=== PATIENT | female | born 1965 | race Caucasian/White ===

== ENCOUNTER 2021-02-19 11:22 | Outpatient (REF) | payer OTHER, SELFPAY ==
--- NOTE | ~2021-02-19 | MM_ITS ---
EXAMINATION: MM SCREENING DIGITAL BREAST TOMOSYNTHESIS, BILATERAL CLINICAL INFORMATION: Screening. Asymptomatic. Benign right stereotactic biopsy 12/14/2017. The lifetime risk of breast cancer based on the Tyrer-Cuzick Model is 8%. COMPARISON: Mammography: 02/14/2020, 07/05/2019, 01/04/2019, 06/24/2018, 12/14/2017, 12/02/2017, 10/25/2015. TECHNIQUE: Digital breast tomosynthesis is performed in both the craniocaudal and mediolateral oblique views along with computer-aided detection (CAD). Synthesized 2D images are generated from the tomosynthesis. FINDINGS: There are scattered areas of fibroglandular density (ACR BI-RADS breast composition Category b). Parenchymal pattern is similar to prior studies. No developing density. There is a intramammary node again seen posterior 3:00 right breast. Small dermal lesion again noted overlying the inferior right breast. There is biopsy clip marker upper outer quadrant right breast with stable remaining calcifications. The axilla and skin contours are unremarkable. No significant changes. MM/MM tomosynthesis screening BI IMPRESSION: No mammographic evidence of malignancy. ASSESSMENT: BI-RADS 2: Benign RECOMMENDATION: Routine annual mammography screening. This patient's information was entered into a reminder system with a target due date for their next mammogram.
== END 2021-02-19 11:23 | disposition home or self-care (01) ==
LOC: HO.MAMMO 11:22
PROVIDERS: Visit Provider Internal Medicine
DX: Z12.31 Encounter for screening mammogram for malignant neoplasm of breast (principal)
CPT/HCPCS: 77063; 77067

== ENCOUNTER 2021-05-22 11:34 | Outpatient (REF) | payer OTHER, SELFPAY ==
[2021-05-22 14:02] LABS: MANUAL DIFF FLAG NO
[2021-05-22 14:07] LABS: Basophils Percent Auto 0.4 % (0-2); Eosinophils Absolute Auto 0.1 X10*3/uL (0.0-0.4); Eosinophils Percent Auto 3.1 % (0-4); Hematocrit 43.7 % (37-47); Hemoglobin 13.9 g/dl (12.0-16.0); Imm Gran Abs Auto 0.01 X10*3/uL (0.00-0.03); Imm Gran Pct Auto 0.2 % (0.0-0.4); Lymphocytes Absolute Auto 1.9 X10*3/uL (1.2-4.9); Lymphocytes Percent Auto 41.6 % (20-40); Mean Corpuscular HGB Conc 31.8 g/dl (31.0-35.0); Mean Corpuscular Hemoglobin 26.7 pg (27.0-33.0); Mean Corpuscular Volume 83.9 fL (80-98); Mean Platelet Volume 8.6 fL (9.4-12.3); Monocytes Absolute Auto 0.4 X10*3/uL (0.1-1.2); Monocytes Percent Auto 8.9 % (2-11); Neutrophils Absolute Auto 2.1 X10*3/uL (2.0-8.3); Neutrophils Percent Auto 45.8 % (45-73); Platelet Count 280 X10*3/uL (160-400); Red Blood Count 5.21 X10*6/uL (4.20-5.50); Red Cell Distribution Width 15.7 % (11.0-16.0); White Blood Count 4.6 X10*3/uL (4.8-10.8)
[2021-05-22 14:34] LABS: Alanine Aminotransferase 36 U/L (0-31); Albumin Level 4.1 g/dL (3.5-5.0); Alkaline Phosphatase 101 U/L (39-117); Anion Gap 12 (12-20); Aspartate Amino Transferase 24 U/L (5-31); Bilirubin Total 0.5 mg/dL (0.0-1.0); Blood Urea Nitrogen 11 mg/dL (9-16); Calcium 8.8 mg/dL (8.4-10.2); Carbon Dioxide 25 mmol/L (22-29); Chloride 105 mmol/L (96-108); Cholesterol 218 mg/dL; Estimated Glomerular Filt Rate > 60; Glucose Fasting 94 mg/dL (60-99); HDL Cholesterol 68 mg/dL; LDL Cholesterol Calculated 136 mg/dl; Potassium 3.9 mmol/L (3.3-5.1); Sodium 138 mmol/L (135-145); Total Protein 6.8 g/dL (6.5-8.0); Triglycerides 73 mg/dL
== END 2021-05-22 11:35 | disposition home or self-care (01) ==
LOC: HO.HMGCLDS 11:34
PROVIDERS: PCP Internal Medicine; Visit Provider Internal Medicine
DX: Z00.00 Encounter for general adult medical examination without abnormal findings (principal); G44.209 Tension-type headache, unspecified, not intractable; M25.511 Pain in right shoulder; Z86.010 Personal history of colon polyps
CPT/HCPCS: 36415; 80053; 80061; 85025

== ENCOUNTER 2021-06-25 10:19 | Day surgery (SDC) | payer OTHER, SELFPAY ==
[2021-06-17 10:03] VITALS: BMI 31.0
--- NOTE | 2021-06-24 10:06 | HO.ANESPROP2 ---
Documented by User: Loren Blankenship NP 06/24/21 10:10 HPI - Anesthesia Eval Consult details Narrative: 56yo F for Colonoscopy [facility] Past Medical History Medical History (Updated 06/17/21 @ 10:02 by Ivelisse Colindres RN) Exercise-induced asthma Surgical History Surgical History (Updated 06/17/21 @ 09:55 by Ivelisse Colindres RN) Hx of colonoscopy Social History Social History Patient Tobacco Use Status: Former Tobacco user Tobacco use type: Cigarette Advance Directives Information Provided: Yes (informational brochure mailed) Advance Directives on File: No Meds Allergies Allergy/AdvReac Type Severity Reaction Status Date / Time No Known Allergies Allergy Verified 06/05/21 10:40 Home Medications Medication Instructions Recorded Confirmed Last Taken Type naproxen sodium 220 mg tablet 220 mg PO Q12H PRN 06/05/21 06/05/21 Unknown History (Aleve) Exam Exam Date and Time: June 24, 2021 1006 Height,Weight and Vital Signs: Height 5 ft 1.5 in Weight 75.75 kg Pertinent Lab Results Pertinent Lab Results: Laboratory Tests 05/22/21 05/22/21 11:42 11:42 WBC 4.6 L Hgb 13.9 Hct 43.7 Plt Count 280 Sodium 138 Potassium 3.9 Chloride 105 Carbon Dioxide 25 BUN 11 Creatinine 0.76 Assessment and Plan Assessment Anesthesia Assessment: Chart Reviewed Documented by User: Kay Tyson MD 06/25/21 10:56 [facility] Past Medical History Medical History (Updated 06/17/21 @ 10:02 by Ivelisse Colindres RN) Exercise-induced asthma Family History Family history of problems with anesthesia: No Surgical History Surgical History (Updated 06/17/21 @ 09:55 by Ivelisse Colindres RN) Hx of colonoscopy History of Problems with Anesthesia: No Social History Social History Patient Tobacco Use Status: Former Tobacco user Tobacco use type: Cigarette Advance Directives Information Provided: Yes (informational brochure mailed) Advance Directives on File: No Meds Allergies Allergy/AdvReac Type Severity Reaction Status Date / Time No Known Allergies Allergy Verified 06/05/21 10:40 Home Medications Medication Instructions Recorded Confirmed Last Taken Type naproxen sodium 220 mg tablet 220 mg PO Q12H PRN 06/05/21 06/05/21 Unknown History (Aleve) Exam Airway Mallampati Class: II (Cap lateral) TM Dist: >3cm Neck ROM: Full Heart: rrr Lungs: cta Assessment and Plan Assessment Anesthesia Assessment: Anesthesia Plan Discussed and Chart Reviewed Final Anesthetic Review Family History of Problems with Anesthesia: No History of Problems with Anesthesia: No NPO: Yes ASA Class: I Final Preanesthetic Review: No Changes in Pt Med Stat, Meds/Allgs Chart Reviewed and Consent Obtained/Reviewed Patient Risk: Intermediate Procedure Risk: Intermediate Anesthetic Plan Anesthetic Plan: MAC: Disposition: Standard PACU
[2021-06-25 10:45] VITALS: BP 128/87; PULSE 75; RESP 16; TEMP 36.8; O2SAT 98
[2021-06-25] MEDS: Lactated Ringers 1,000 ML 100 ML IVCONT (10:59)
--- NOTE | 2021-06-25 12:57 | P.BOP_ITS ---
Brief Operative Note Date of Service: 06/25/21 Pre-op diagnosis: Screening Post-op diagnosis: other (Diverticulosis) Procedure: Colonoscopy to the cecum and TI Surgeon: Seferino Garcia Anesthesia: MAC Was an Head Of Ethics And Compliance used for this Procedure?: No Estimated blood loss (mL): 0 Pathology: none sent Condition: stable Disposition: PACU
[2021-06-25 12:58] VITALS: BP 130/77; PULSE 74; RESP 16; TEMP 36.3; O2SAT 97
[2021-06-25 13:14] VITALS: BP 125/81; PULSE 71; RESP 18; TEMP 36.3; O2SAT 99
--- NOTE | 2021-06-26 03:43 | OP_ITS ---
SURGEON: Seferino Garcia MD INDICATIONS: The patient presents for evaluation of colorectal cancer screening and personal history of colon polyps. Full consent has been obtained from her for this, including risks of bleeding and perforation. PREOPERATIVE DIAGNOSIS: Colorectal cancer screening. POSTOPERATIVE DIAGNOSIS: PROCEDURE PERFORMED: Colonoscopy to the cecum and terminal ileum. ESTIMATED BLOOD LOSS: COMPLICATIONS: ANESTHESIA: Monitored anesthesia care. ASSISTANTS: SPECIMENS: POSTOPERATIVE DIAGNOSES: Colorectal cancer screening, diverticulosis and internal hemorrhoids. DESCRIPTION OF PROCEDURE: The patient was placed in the left lateral decubitus position. The digital rectal exam revealed no abnormalities. The Olympus video pediatric colonoscope was entered into the rectum and advanced easily to the cecum. Once in the cecum, I did identify normal-appearing cecal pouch. The terminal ileum was cannulated and appeared normal. The scope was withdrawn back in the colon. The entire cecum and ileocecal valve appeared normal. The scope was slowly withdrawn assessing all mucosal surfaces carefully. Preparation was excellent. I did not visualize any sign of polyps, colitis, nor angiodysplasia. There was a mild amount of sigmoid diverticulosis. In the rectum, scope was retroflexed visualizing internal hemorrhoids, but no other pathology. The rectal mucosa appeared normal. The scope was straightened out and withdrawn from the patient. She tolerated the procedure well and was returned to the recovery area in stable condition. IMPRESSION: 1. Mild sigmoid diverticulosis. 2. Small internal hemorrhoids. PLAN: I would recommend repeat colonoscopy in 5 years for further screening. She will otherwise see me again on a p.r.n. basis. Seferino Garcia MD RMW/MODL / [id number]
== END 2021-06-25 14:23 | disposition home or self-care (01) ==
PROVIDERS: PCP Internal Medicine; Visit Provider Internal Medicine
PROC: 0DJD8ZZ Inspection of Lower Intestinal Tract, Via Natural or Artificial Opening Endoscopic (ICD-10-PCS; CPT 45378; principal; 2021-06-25 11:20)
DX: Z12.11 Encounter for screening for malignant neoplasm of colon (principal); Z86.010 Personal history of colon polyps; K57.30 Diverticulosis of large intestine without perforation or abscess without bleeding; K64.8 Other hemorrhoids; J45.990 Exercise induced bronchospasm; Z87.891 Personal history of nicotine dependence; Z79.1 Long term (current) use of non-steroidal anti-inflammatories (NSAID)
CPT/HCPCS: 45378

== ENCOUNTER 2022-02-24 11:44 | Outpatient (REF) | payer OTHER, SELFPAY ==
--- NOTE | ~2022-02-24 | MM_ITS ---
EXAMINATION: MM SCREENING DIGITAL BREAST TOMOSYNTHESIS, BILATERAL CLINICAL INFORMATION: Screening. Asymptomatic. The lifetime risk of breast cancer based on the Tyrer-Cuzick Model is 8%. COMPARISON: Mammography: 02/19/2021, 02/14/2020, 07/05/2019, 01/04/2019 TECHNIQUE: Digital breast tomosynthesis is performed in both the craniocaudal and mediolateral oblique views along with computer-aided detection (CAD). Synthesized 2D images are generated from the tomosynthesis. FINDINGS: There are scattered areas of fibroglandular density (ACR BI-RADS breast composition Category b). There are no significant masses, abnormal calcifications, or other abnormalities. Parenchymal pattern is similar to prior studies. No developing density or architectural abnormality. There are bilateral dermal lesions overlying the lower breasts. The axilla are unremarkable. No significant changes. MM/MM tomosynthesis screening BI IMPRESSION: No mammographic evidence of malignancy. ASSESSMENT: BI-RADS 2: Benign RECOMMENDATION: Routine annual mammography screening. This patient's information was entered into a reminder system with a target due date for their next mammogram.
== END 2022-02-24 11:45 | disposition home or self-care (01) ==
LOC: HO.MAMMO 11:44
PROVIDERS: PCP Internal Medicine; Visit Provider Internal Medicine
DX: Z12.31 Encounter for screening mammogram for malignant neoplasm of breast (principal)
CPT/HCPCS: 77063; 77067

== ENCOUNTER 2022-12-08 10:47 | Outpatient (RCR) | payer OTHER, SELFPAY ==
--- NOTE | 2023-01-19 15:03 | MHC.PT.DC ---
[facility] [place] [facility] [place] [facility] [place] [facility] [address] [place] [address] [phone] F: [phone] F: [phone] F: [phone] F: [phone] Physical Therapy Discharge Report Diagnosis: This is a 57 yo female presenting to skilled PT with a script for neck pain. Date of Surgery: Date of Evaluation: 12/08/22 Date of Discharge: 01/19/23 Treatments to Date: 1 Cancellations to Date: 0 No Shows to Date: 0 Discharge Status: Independent with HEP Patient Elected to Stop Discharge Summary: This is a 57 yo female presenting to skilled PT with a script for neck pain. Pain has been ongoing for about a year and is described as stiff and painful (usually in the middle of the night and in AM). 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 She gets MARTINS's stemming from the posterior aspect of her head and radiates up. She also reports cracking in spine with cervical rotation. She feels better with pressure applied to posterior aspect of her head. Her pain comes and goes, depending on the day and changes with certain movements. She has been using a rolled heating pad posterior to her head, tried different types of pillows, Aleve and warm showers. Assessment reveals pain that ranges from 2-8/10. Patient demos decreased cervical ROM, decreased postural awareness, TTP at R upper trap and c-spine, soft tissue density for which I recommended dermatology assessment. Based on functional limitations, impaired QOL and pain tolerance patient is a good candidate for skilled PT 2x/wk for 4wks however due to high co-pay patient will try HEP on own and call our office if symptoms do not resolve. Chart was DC'd after 30 days Electronically signed by: Nelli Herron, PT Please sign and return to therapist. Thank you for your referral.
== END 2023-01-19 15:03 | disposition home or self-care (01) ==
LOC: HO.PTCHIC 10:47
PROVIDERS: PCP Internal Medicine; Visit Provider Internal Medicine
DX: M54.2 Cervicalgia (principal)
CPT/HCPCS: 97110; 97162

== ENCOUNTER 2022-12-09 10:26 | Outpatient (REF) | payer OTHER, SELFPAY ==
[2022-12-09 12:00] LABS: Basophils Percent Auto 0.4 % (0-2); Eosinophils Absolute Auto 0.1 X10*3/uL (0.0-0.4); Eosinophils Percent Auto 2.7 % (0-4); Hematocrit 46.1 % (37.0-47.0); Hemoglobin 14.8 g/dl (12.0-16.0); Imm Gran Abs Auto 0.01 X10*3/uL (0.00-0.03); Imm Gran Pct Auto 0.2 % (0.0-0.4); Lymphocytes Absolute Auto 2.1 X10*3/uL (1.2-4.9); Lymphocytes Percent Auto 42.9 % (20-40); MANUAL DIFF FLAG NO; Mean Corpuscular HGB Conc 32.1 g/dl (31.0-35.0); Mean Corpuscular Hemoglobin 27.7 pg (27.0-33.0); Mean Corpuscular Volume 86.2 fL (80.0-98.0); Mean Platelet Volume 8.5 fL (9.4-12.3); Monocytes Absolute Auto 0.4 X10*3/uL (0.1-1.2); Monocytes Percent Auto 7.4 % (2-11); Neutrophils Absolute Auto 2.3 x10*3/uL (2.0-8.3); Neutrophils Percent Auto 46.4 % (45-73); Platelet Count 301 X10*3/uL (160-400); Red Blood Count 5.35 X10*6/uL (4.20-5.50); Red Cell Distribution Width 13.9 % (11.0-16.0); White Blood Count 4.9 X10*3/uL (4.8-10.8)
[2022-12-09 12:51] LABS: Alanine Aminotransferase 31 U/L (0-31); Alkaline Phosphatase 108 U/L (39-117); Anion Gap 12 (12-20); Aspartate Amino Transferase 20 U/L (5-31); Bilirubin Total 0.7 mg/dL (0.0-1.0); Blood Urea Nitrogen 8 mg/dL (9-16); Calcium 9.1 mg/dL (8.4-10.2); Carbon Dioxide 27 mmol/L (22-29); Chloride 106 mmol/L (96-108); Cholesterol 222 mg/dL; Estimated Glomerular Filt Rate > 60; Glucose Random 96 mg/dL (60-115); HDL Cholesterol 67 mg/dL; LDL Cholesterol Calculated 137 mg/dl; Potassium 4.3 mmol/L (3.3-5.1); Sodium 141 mmol/L (135-145); Total Protein 6.6 g/dL (6.5-8.0); Triglycerides 94 mg/dL
== END 2022-12-09 10:27 | disposition home or self-care (01) ==
LOC: HO.HMGCLDS 10:26
PROVIDERS: PCP Internal Medicine; Visit Provider Internal Medicine
DX: H81.311 Aural vertigo, right ear (principal); M54.2 Cervicalgia
CPT/HCPCS: 36415; 80053; 80061; 85025

== ENCOUNTER → 2023-03-02 12:00 | Outpatient (BNV) | payer OTHER, SELFPAY | PROVIDERS: PCP Internal Medicine; Visit Provider Radiology Diagnostic Radiology | DX: Z12.31 Encounter for screening mammogram for malignant neoplasm of breast (principal) | CPT/HCPCS: 77063; 77067 ==

== ENCOUNTER 2023-03-02 12:04 | Outpatient (REF) | payer OTHER, SELFPAY ==
--- NOTE | ~2023-03-02 | MM_ITS ---
EXAMINATION: MM SCREENING DIGITAL BREAST TOMOSYNTHESIS, BILATERAL CLINICAL INFORMATION: Screening. Asymptomatic. Benign right stereotactic biopsy 12/14/2017. The lifetime risk of breast cancer based on the Tyrer-Cuzick Model is 7.5%. COMPARISON: Mammography: 02/24/2022, and exams dating back to 2016. TECHNIQUE: Digital breast tomosynthesis is performed in both the craniocaudal and mediolateral oblique views along with computer-aided detection (CAD). Synthesized 2D images are generated from the tomosynthesis. FINDINGS: There are scattered areas of fibroglandular density (ACR BI-RADS breast composition Category b). Top hat-shaped biopsy clip is located in the upper outer right breast, middle one third. In the upper outer quadrant of the right breast, middle one third, there is a focal asymmetric density for which diagnostic views are recommended, followed by targeted right breast ultrasound should the abnormality persist. MM/MM tomosynthesis screening BI IMPRESSION: Focal asymmetry right breast upper outer quadrant, middle one third, for which 3-D spot magnification views are recommended the CC and MLO projections, with ultrasound to follow should the abnormality persist. ASSESSMENT: BI-RADS BI-RADS 0 - Incomplete: Needs additional Imaging. RECOMMENDATION: 1. Additional views of the right breast 2. Targeted ultrasound if warranted after review of the additional views. 3. Radiology department staff will contact the patient for additional imaging. Additional Imaging required This examination should not preclude the clinical evaluation of a suspicious palpable abnormality. This patient's information was entered into a reminder system with a target due date for their next mammogram.
== END 2023-03-02 12:05 | disposition home or self-care (01) ==
LOC: HO.MAMMO 12:04
PROVIDERS: PCP Internal Medicine; Visit Provider Internal Medicine
DX: Z12.31 Encounter for screening mammogram for malignant neoplasm of breast (principal)
CPT/HCPCS: 77063; 77067

== ENCOUNTER 2023-03-24 10:22 | Outpatient (REF) | payer OTHER, SELFPAY ==
--- NOTE | ~2023-03-24 | US_ITS ---
EXAMINATION: MM DIAGNOSTIC DIGITAL BREAST TOMOSYNTHESIS, RIGHT US BREAST LIMITED, RIGHT MAMMOGRAPHY: CLINICAL INFORMATION: Evaluate focal asymmetry right breast upper outer quadrant, middle one third, seen on screening exam. COMPARISON: Mammography: Screening mammography 03/02/2023, 03/02/2022, and dating back to 2019. TECHNIQUE: Digital breast tomosynthesis is performed of the right breast in the right 3-D cc spot compression view, and right MLO spot compression view, along with computer-aided detection (CAD). Synthesized 2D images are generated from the tomosynthesis. FINDINGS: There are scattered areas of fibroglandular density (ACR BI-RADS breast composition Category b). There is a spiculated suspicious-appearing 7 mm mass within the right breast upper outer quadrant, middle one third, just abutting a top hat-shaped biopsy clip which is located superolateral posterior and medial to the abnormality. This finding is suspicious and subsequent ultrasound will be performed. No additional suspicious abnormalities noted. ULTRASOUND: CLINICAL INFORMATION: Evaluate suspicious spiculated 7 mm mass within the right breast upper outer quadrant, middle one third. COMPARISON: No prior relevant ultrasound. Mammography dated 03/02/2023. TECHNIQUE: Targeted sonographic evaluation was performed of the right breast upper outer quadrant using a high frequency linear transducer. Selected archived documentation. FINDINGS: RIGHT BREAST: No suspicious masses are identified within the upper outer quadrant of the right breast. Both the technologist, and myself scanned the patient. A benign-appearing intramammary lymph node measuring 8 mm in diameter was identified at the 10:00 axis, approximately 10 cm from the nipple, with normal-appearing cortex and fatty hilum. This does not appear to accurately represent the abnormality seen on mammography. No additional masses or suspicious abnormalities were identified to correlate with the mammographic finding. 3-D tomographic sampling of the mass is recommended. US/US breast RT limited mamm only IMPRESSION: Suspicious 7 mm spiculated mass upper outer quadrant right breast as detailed, without definite ultrasound correlate. 3-D tomographic biopsy recommended right breast,, with targeting of the suspicious abnormality. Findings and recommendations were discussed with the patient in detail. OVERALL ASSESSMENT: Mammography: BI-RADS 4 - Suspicious finding Ultrasound: BI-RADS 4 - Suspicious finding RECOMMENDATION: Biopsy recommended
== END 2023-03-24 10:23 | disposition home or self-care (01) ==
LOC: HO.MAMMO 10:22
PROVIDERS: PCP Internal Medicine; Visit Provider Internal Medicine
DX: R92.2 Inconclusive mammogram (principal)
CPT/HCPCS: 76642; 77061; 77065

== ENCOUNTER → 2023-03-24 10:30 | Outpatient (BNV) | payer OTHER, SELFPAY | PROVIDERS: PCP Internal Medicine; Visit Provider Radiology Diagnostic Radiology | DX: N63.11 Unspecified lump in the right breast, upper outer quadrant (principal) | CPT/HCPCS: 76642; 77061; 77065 ==

== ENCOUNTER 2023-04-07 08:20 | Outpatient (AMB) | payer OTHER, SELFPAY ==
--- NOTE | 2023-04-07 08:21 | A.OFFVIS_ITS ---
Intake Vital Signs 04/07/23 08:29 Weight 172 lb BP 146/86 H Blood Pressure Location Rt brachial Position Sitting Pulse 96 Intake Visit Reasons: Stereo Bx consult nodule UOQ RT breast Intake Note: This patient presents for a Stereotactic biopsy consultation for nodule on the upper outer quadrant right breast. Patient c/o; reports no breast complaints at this time. 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 She had undergone a mammogram last month showing a mass in the breast in the upper-outer quadrant. She was recalled for targeted mammogram which showed a suspicious appearing, spiculated, 7 mm mass within the right breast at the upper outer quadrant. This was not clearly seen on ultrasound so stereotactic biopsy had been recommended by the radiologist. She had a stereotactic biopsy on this same area of the breast about 3 years ago as well which turned out to be benign. She denies palpable breast masses or any nipple or skin changes Her menarche was at age of 10. Her 1st was the age of 21. She had 4 pregnancies. She had menopause at age of 56. She denies a significant family history of breast cancer. PFS Medical History (Updated 04/06/23 @ 14:19 by Ender Gaming MD) Breast mass, right Exercise-induced asthma Surgical History (Updated 06/17/21 @ 09:55 by Ivelisse Colindres RN) Hx of colonoscopy Social History Patient Tobacco Use Status: Former Tobacco user Tobacco use type: Cigarette Female Reproductive History Menstrual Age of Menarche: 10 Total pregnancies: 4 Review of Systems Const Denies chills and Denies fever(s) Card Denies chest pain, Denies dyspnea and Denies dyspnea on exertion Resp Denies cough, Denies dyspnea and Denies dyspnea on exertion GI Denies hematochezia and Denies change in bowel habits Denies hematuria Musc Denies back pain and Denies limited range of motion Neuro Denies focal weakness and Denies convulsions Psych Denies depression and Denies mood swings Physical Exam Const General: comfortable and no acute distress Orientation/consciousness: patient oriented x3 Neck Neck: Yes no lymphadenopathy Chest Other: No palpable breast masses, no nipple or skin changes, no axillary lymphadenopathy Resp Auscultation: clear to auscultation bilaterally Cardio Rhythm: regular rhythm GI Palpation (GI): Soft to palpation, nontender and no guarding Neuro General: patient oriented x3 Assessment & Plan Assessment & Plan (1) Breast mass, right: Code(s): N63.10 - Unspecified lump in the right breast, unspecified quadrant Plan: She has a right breast mass seen on imaging studies as described above. She does not have any palpable masses. A stereotactic biopsy had been recommended by the radiologist. I explained to her the technique of this procedure. I will see her again in the office next week to discuss the path report. Orders: Orders MM stereotactic biopsy RT 04/06/23 N63.10 - Unspecified lump in the right breast, unspecified quadrant Coding Level of Care Code New Pt Level 3 (27735) Diagnoses Breast mass, right N63.10
[2023-04-07 08:29] VITALS: BP 146/86; PULSE 96
== END 2023-04-07 08:43 | disposition home or self-care (01) ==
PROVIDERS: PCP Internal Medicine; Visit Provider Surgery
DX: N63.10 Unspecified lump in the right breast, unspecified quadrant (principal)
CPT/HCPCS: 99203

== ENCOUNTER 2023-04-07 08:47 | Outpatient (REF) | payer OTHER, SELFPAY ==
--- NOTE | ~2023-04-07 | MM_ITS ---
EXAMINATION: STEREOTACTIC TOMOSYNTHESIS-GUIDED VACUUM-ASSISTED BREAST BIOPSY, RIGHT POST PROCEDURE DIGITAL MAMMOGRAM, RIGHT CLINICAL INFORMATION: Biopsy of small spiculated suspicious mass right breast upper outer quadrant abutting old top hat biopsy clip. COMPARISON: 03/24/2023, 03/02/2023, 02/24/2022, and exams dating back to 2016. TECHNIQUE/PROCEDURE: Informed consent was obtained from the patient after discussion of the benefits, risks, and alternatives to biopsy today. Patient appeared to understand. Gave opportunity for questions. Patient signed consent form. BIOPSY TABLE: [email or web address] Affirm Prone Biopsy System. LESION: Spiculated nodule measuring approximately 4 mm diameter. LOCAL ANESTHESIA: 3 mL 1% lidocaine; 8 mL 1% lidocaine with epinephrine. DERMATOTOMY: Single skin tao dermatotomy performed. NEEDLE: [employer] 9-gauge vacuum assisted core biopsy device. APPROACH: craniocaudal. TARGETING: Digital breast tomosynthesis used for targeting. CORES: 7. CLIP: [employer] SecurMark Buckle-shaped marker. SPECIMEN RADIOGRAPH: Not acquired, as there were no calcifications. POST PROCEDURE UNILATERAL DIGITAL MAMMOGRAM: The post biopsy mammogram is performed in separate room using separate digital mammography equipment from the biopsy procedure. CC and ML views are obtained. There are scattered areas of fibroglandular density (breast composition category: b). The clip marker is in expected position. Possible 4 mm superior migration along the biopsy tract, although this is not definitive based on the imaging. The index mass appears to have been sampled. No gross hematoma. The patient tolerated the procedure well. No immediate complications. Home instructions reviewed with the patient. Final pathology results are pending. MM/MM stereotactic biopsy RT IMPRESSION: 1. Digital tomosynthesis-guided core biopsy right breast 4 mm spiculated mass with clip placement. 2. Specimen radiograph taken and post procedure mammogram. Buckle-shaped biopsy clip placed, with potential 4 mm migration superiorly although this is not definitive based on the imaging (no prior true lateral to compare). 3. Final pathology results pending. An addendum report will be issued.
[2023-04-07] MEDS: Lidocaine HCl 1 % 20 ML VIAL 4 ML SUBCUT (10:59)
[2023-04-07] MEDS: Sodium Bicarbonate 8.4% 50 MEQ/50 ML VIAL SUBCUT (11:00)
== END 2023-04-07 08:48 | disposition home or self-care (01) ==
LOC: HO.MAMMO 08:47
PROVIDERS: PCP Internal Medicine; Visit Provider Surgery
DX: N63.11 Unspecified lump in the right breast, upper outer quadrant (principal)
CPT/HCPCS: 19081; 88305; 88342; A4648

== ENCOUNTER → 2023-04-07 10:00 | Outpatient (BNV) | payer OTHER, SELFPAY | PROVIDERS: PCP Internal Medicine; Visit Provider Radiology Diagnostic Radiology | DX: N63.11 Unspecified lump in the right breast, upper outer quadrant (principal) | CPT/HCPCS: 19081 ==

== ENCOUNTER 2023-04-15 13:22 | Outpatient (AMB) | payer OTHER, SELFPAY ==
--- NOTE | 2023-04-15 13:24 | MHC.OFFVIS ---
Intake Vital Signs 04/15/23 13:27 Weight 172 lb 0.004 oz BP 136/76 Blood Pressure Location Rt brachial Position Sitting Pulse 69 Intake Visit Reasons: Stereo Bx results nodule UOQ RT breast Intake Note: This patient presents for a follow-up assessment s/p breast Bx. Patient c/o; reports no complaints at this time. 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 She had undergone stereotactic biopsy of a right breast mass last week. She had tolerated this well. She does admit to some bruising in the area. She had undergone a mammogram last month showing a mass in the right breast in the upper-outer quadrant. She was recalled for targeted mammogram which showed a suspicious appearing, spiculated, 7 mm mass within the right breast at the upper outer quadrant. She had a stereotactic biopsy on this same area of the breast about 3 years ago as well which turned out to be benign. She denies palpable breast masses or any nipple or skin changes [facility] Medical History Atypical ductal hyperplasia of breast Breast mass, right Exercise-induced asthma Surgical History History of breast biopsy Hx of colonoscopy Social History Patient Tobacco Use Status: Former Tobacco user Tobacco use type: Cigarette Female Reproductive History Menstrual Age of Menarche: 10 Review of Systems Const Denies chills and Denies fever(s) Card Denies chest pain, Denies dyspnea and Denies dyspnea on exertion Resp Denies cough, Denies dyspnea and Denies dyspnea on exertion GI Denies hematochezia and Denies change in bowel habits Denies hematuria Musc Denies back pain and Denies limited range of motion Neuro Denies focal weakness and Denies convulsions Psych Denies depression and Denies mood swings Physical Exam Vital Signs: Last Vital Signs Pulse 69 04/15/23 13:27 BP 136/76 04/15/23 13:27 Const General: comfortable and no acute distress Orientation/consciousness: patient oriented x3 Neck Neck: Yes no lymphadenopathy Chest Other: Some ecchymosis on the right upper breast Resp Auscultation: clear to auscultation bilaterally Cardio Rhythm: regular rhythm GI Palpation (GI): Soft to palpation, nontender and no guarding Neuro General: patient oriented x3 Assessment & Plan Assessment & Plan (1) Atypical ductal hyperplasia of breast: Code(s): N60.99 - Unspecified benign mammary dysplasia of unspecified breast Plan: She had undergone stereotactic biopsy last week of a right breast mass and this shows an apical ductal hyperplasia. Because of this pathology, it is recommended that she undergo lumpectomy in view to association of this lesion with the higher grade pathology. Furthermore, the lesion is spiculated and the radiologist stated that it would be best to proceed with lumpectomy I reviewed with the technique of lumpectomy of the right breast, with Hologic localizer. I reviewed the risks including but not limited to bleeding, infections, hematoma, postop pain, the need for additional excision, as well as the benefits and alternatives. She understands and wants to proceed. Orders: Orders MM needle loc RT Today N60.99 - Unspecified benign mammary dysplasia of unspecified breast Coding Level of Care Code Est Pt Level 3 (57440) Diagnoses Atypical ductal hyperplasia of breast N60.99
[2023-04-15 13:27] VITALS: BP 136/76; PULSE 69
== END 2023-04-15 13:42 | disposition home or self-care (01) ==
PROVIDERS: PCP Internal Medicine; Visit Provider Surgery
DX: N60.99 Unspecified benign mammary dysplasia of unspecified breast (principal)
CPT/HCPCS: 99213

== ENCOUNTER → 2023-04-15 13:22 | Outpatient (BNVA) | payer OTHER, SELFPAY | PROVIDERS: PCP Internal Medicine; Visit Provider Surgery | DX: N63.11 Unspecified lump in the right breast, upper outer quadrant (principal); N60.91 Unspecified benign mammary dysplasia of right breast | CPT/HCPCS: 99212 ==

== ENCOUNTER 2023-04-16 07:43 | Outpatient (REF) | payer OTHER, SELFPAY ==
--- NOTE | ~2023-04-16 | MM_ITS ---
EXAMINATION: MM MAMMOGRAM GUIDED RFID LOCALIZATION BREAST, RIGHT CLINICAL INFORMATION: RFID localization right breast mass and clip, upper outer quadrant, posterior one third. Pathology of stereotactic biopsy demonstrated minute focus of atypical ductal hyperplasia, with an otherwise benign breast parenchyma with minimal fibrosis. Biopsy site is marked by a buckle-shaped clip. COMPARISON: Stereotactic biopsy right breast 04/07/2023. Numerous recent prior exams: Mammography right breast 03/24/2023, 03/22/2023. Right breast ultrasound 02/25/2023 TECHNIQUE NEEDLE LOC: Proper informed consent is obtained from the patient after discussion of the procedure, potential risks and complications, and alternatives including declining the procedure today. Patient was given an opportunity for questions. The patient appeared to understand. The patient consented to the procedure and signed the consent form. GUIDANCE: Digital mammography. APPROACH: Superior. TARGET: Small spiculated mass marked by a buckle-shaped biopsy clip. ANESTHESIA: carbonated lidocaine 1%: 4 mL. LOCALIZATION SYSTEM: -[employer] LOCallizer Wire-Free Guidance System with 12g needle applicator. -Length: 10 cm. -RADIOFREQUENCY TAG: ID # [id number] DERMATOTOMY: None needed. RF Tag ID confirmed with LOCalizer Guidance System prior to placement. The skin is prepped and local anesthesia administered. The needle is positioned and RFID tag deployed. Final images demonstrate the LOCalizer RF tag to reside immediately adjacent to the buckle-shaped biopsy clip and also to the round spiculated mass lesion. The final right MLO and right CC Images were labeled for OR assistance. The patient tolerated the procedure well and had no immediate complications. Dressing placed and home instructions reviewed. MM/MM needle loc RT IMPRESSION: -Status post right breast RFID localization. No complications. The chip is placed in appropriate and accurate position.
[2023-04-16] MEDS: Lidocaine HCl 1 % 20 ML VIAL 4 ML SUBCUT (09:24)
[2023-04-16] MEDS: Sodium Bicarbonate 8.4% 50 MEQ/50 ML VIAL SUBCUT (09:25)
== END 2023-04-16 07:44 | disposition home or self-care (01) ==
LOC: HO.MAMMO 07:43
PROVIDERS: PCP Internal Medicine; Visit Provider Surgery
DX: N60.91 Unspecified benign mammary dysplasia of right breast (principal)
CPT/HCPCS: 19281; C1819

== ENCOUNTER 2023-04-23 09:04 | Day surgery (SDC) | payer OTHER, SELFPAY ==
--- NOTE | ~2023-04-23 | MM_ITS ---
EXAMINATION: RFID LOCALIZATION SPECIMEN FROM THE RIGHT BREAST CLINICAL INFORMATION: Invasive ductal carcinoma right breast. COMPARISON: 04/16/2023. TECHNIQUE: 4 views of the surgical specimen were performed. FINDINGS: The radiograph of the excised surgical specimen shows that the RFID chip is present, with the buckle-shaped biopsy clip immediately abutting the edge of the RFID. The spiculated mass appears contained within the specimen abutting the RFID chip. MM/MM surgical specimen IMPRESSION: Satisfactory excision of the spiculated mass, RF ID chip, and buckle-shaped biopsy clip. These findings were communicated to the Dr. Gaming in the OR at the time of excision.
[2023-04-23 09:48] VITALS: BMI 32.5
[2023-04-23 09:58] VITALS: BP 132/81; PULSE 70; RESP 16; TEMP 36.7; O2SAT 98
[2023-04-23] MEDS: Lactated Ringers 1,000 ML 80 ML IVCONT (10:05)
--- NOTE | 2023-04-23 10:19 | MHC.SHP ---
Pre-Procedural Eval Section A Date of Service: 04/23/23 The patient is an INPATIENT: No Changes since office visit: No Cold of Flu in the past 2 weeks, No New Medical Problems, No Changes in Medication and No Patient answered all questions The History & Physical has been completed within 30 days and I have reviewed it.: Yes Section B Chief Complaint: Unspecified benign mammary dysplasia of unspecifie Allergies: Allergies Allergy/AdvReac Type Severity Reaction Status Date / Time No Known Allergies Allergy Verified 04/15/23 13:28 Plan I have reviewed the history and physical and performed a pertinent physical examination on my patient. No changes have occurred unless specified. Time Spent With Patient Time: Total time managing care of this patient today ____ minutes.
--- NOTE | 2023-04-23 10:29 | HO.ANESPROP2 ---
HPI - Anesthesia Eval Consult details Narrative: for right breast lumpectomy PMFSH Active Problems Active Problems: All Active Problems (Updated 04/15/23 @ 13:40 by Ender Gaming MD) Atypical ductal hyperplasia of breast (Acute) Breast mass, right (Acute) Past Medical History Medical History Atypical ductal hyperplasia of breast Breast mass, right Exercise-induced asthma Family History Family history of problems with anesthesia: No Surgical History Surgical History History of breast biopsy Hx of colonoscopy History of Problems with Anesthesia: No Social History Social History Patient Tobacco Use Status: Former Tobacco user Tobacco use type: Cigarette Second Hand Smoke Exposure: No Use of substances other than those prescribed or required for medical reasons: No Are you DNR?: No Advance Directives: No Advance Directives Information Provided: Yes Advance Directives on File: No Meds Allergies Allergy/AdvReac Type Severity Reaction Status Date / Time No Known Allergies Allergy Verified 04/15/23 13:28 Active Medications: Current Medications Lactated Ringer's (Lr) 1,000 mls @ 80 mls/hr IVCONT .[id number] JIMMY Last Admin: 04/23/23 10:05 Dose: 80 mls/hr Home Medications Medication Instructions Recorded Confirmed Last Taken Type naproxen sodium 220 mg tablet 220 mg PO Q12H PRN Pain 06/05/21 04/23/23 04/19/23 History (Fadia) Exam Exam Date and Time: April 23, 2023 1029 Height,Weight and Vital Signs: Height 5 ft 1 in Weight 78.018 kg Last Vital Signs Temp 98.1 F 04/23/23 09:58 Pulse 70 04/23/23 09:58 Resp 16 04/23/23 09:58 BP 132/81 04/23/23 09:58 Pulse Ox 98 04/23/23 09:58 O2 Del Method Room Air 04/23/23 09:58 Airway Mallampati Class: I TM Dist: >3cm Neck ROM: Full Loose/Missing/Broken Teeth: No Heart: ok Lungs: ok Assessment and Plan Assessment Anesthesia Assessment: Anesthesia Plan Discussed and Chart Reviewed Final Anesthetic Review Family History of Problems with Anesthesia: No History of Problems with Anesthesia: No NPO: Yes ASA Class: II Final Preanesthetic Review: No Changes in Pt Med Stat, Meds/Allgs Chart Reviewed, Consent Obtained/Reviewed and Anes Risks/Benef Reviewed Patient Risk: Low Procedure Risk: Low Anesthetic Plan Anesthetic Plan: GA and Agree w/ Assess. and Plan Disposition: Standard PACU
--- NOTE | 2023-04-23 12:14 | P.OP_ITS ---
Operative Note Operative Note Date of Service: 04/23/23 Narrative: Preop diagnosis: Atypical ductal hyperplasia, right breast Postop diagnosis: The same Procedure: Lumpectomy, right breast with Hologic RFID localization Surgeon: Ender Gaming MD junior assistant manager: ELISSA Messina The patient is a 58-year-old female who had recently undergone stereotactic biopsy of a right breast calcifications which showed atypical ductal hyperplasia. After discussing the images as well as the pathology with the radiologist, recommended going ahead with lumpectomy by a Hologic localizationto rule out high-grade lesions. she understood the technique of the planned procedure as well as the risks, benefits, and alternatives She was brought to the operating room placed supine under general anesthesia via laryngeal mask airway. The right breast was prepped and draped in the usual sterile fashion. A surgical time-out was done. The patient received cefazolin 2 g IV preoperatively. I used the Hologic probe to identify the area on the skin closest to the RFID clip. I made an incision on the skin using a blade 15. After infiltration with lidocaine 1%. I deepened this incision through the full-thickness of the skin and subcutaneous fat with electrocautery. I then proceeded to dissect through tissue, periodically checking with the Hologic localizer to make sure that we were including the biopsy area. I circumferentially dissected with the Sharma scissors when we confirm that we had the clip within the specimen using the localizer. The RFID clip seemed to be very close laterally so we excised additional lateral margins. I had marked the lateral margins of the lumpectomy specimen with a long stitch. We did immediate re-ray of the specimen and the I the clip was seen. I had reviewed the films as well with the radiologist and he had stated that he could see the initial biopsy clip as well. I also sent the specimen for gross exam with the pathologist. Once hemostasis appeared to be adequate, I reapposed deep breast tissue with simple interrupted Polysorb 3-0 sutures. Skin closure was achieved with pulse of 4-0 subcuticular running stitch. There was infiltrated with Marcaine 0.5% for postop ABI. Dressings were applied. The procedure was completed. The patient tolerated procedure well. There were no immediate complications. Initial and final counts of sponges and instruments were correct. Estimated blood loss was about 25 cc. The patient was extubated without difficulty and transferred to the recovery room with stable vital signs. At the end of the procedure, I reviewed the specimen with the pathologist and it appeared we had adequate margins after additional lateral margins were removed.
[2023-04-23 12:39] VITALS: BP 109/60; PULSE 66; RESP 16; TEMP 36.2; O2SAT 97
[2023-04-23 12:44] VITALS: BP 110/56; PULSE 64; RESP 16; O2SAT 97
[2023-04-23 12:49] VITALS: BP 102/59; PULSE 64; RESP 16; O2SAT 98
[2023-04-23 12:53] VITALS: BP 109/65; PULSE 65; RESP 16; O2SAT 96
[2023-04-23 13:08] VITALS: BP 118/73; PULSE 59; RESP 16; TEMP 36.2; O2SAT 98
[2023-04-23] MEDS: Acetaminophen 325 MG TABLET 650 MG PO (13:10)
== END 2023-04-23 13:34 | disposition home or self-care (01) ==
PROVIDERS: PCP Internal Medicine; Visit Provider Surgery
PROC: (CPT 19301; principal; 2023-04-23 10:50)
DX: C50.411 Malignant neoplasm of upper-outer quadrant of right female breast (principal); Z17.0 Estrogen receptor positive status [ER+]; J45.990 Exercise induced bronchospasm; Z79.1 Long term (current) use of non-steroidal anti-inflammatories (NSAID); Z87.891 Personal history of nicotine dependence
CPT/HCPCS: 19301; 88307; 88341; 88342; 88360; J0690; J1885; J2405; J2795; J3010

== ENCOUNTER → 2023-04-23 09:04 | Outpatient (BNV) | payer OTHER, SELFPAY | PROVIDERS: PCP Internal Medicine; Visit Provider Surgery | DX: N60.91 Unspecified benign mammary dysplasia of right breast (principal) | CPT/HCPCS: 19301 ==

== ENCOUNTER 2023-05-06 09:22 | Outpatient (AMB) | payer OTHER, SELFPAY ==
--- NOTE | 2023-05-06 09:30 | A.OFFVIS_ITS ---
Intake Vital Signs 05/06/23 09:35 BP 133/77 Blood Pressure Location Lt brachial Position Sitting Pulse 63 Intake Visit Reasons: S/P lumpectomy Rt breast w/Hologic localizer Intake Note: This patient presents for a post-op assessment status post right breast lumpectomy with Hologic localizer. Patent c/o; reports no complaints at this time. Lead Database Developer Required: No Accompanied by: Self / Same As Patient Allergies No Known Allergies Allergy (Verified 05/06/23 09:35) Medication List - Last Reconciled 05/06/23 by Ender Gaming MD naproxen sodium (Aleve) 220 mg PO Q12H PRN tramadol 50 mg PO Q6H PRN HPI S/P lumpectomy Rt breast w/Hologic localizer HPI Details 58-year-old female here for a follow-up after lumpectomy of the right breast. She had recently undergone stereotactic biopsy for a right breast mass and the initial path reported shown an atypical ductal hyperplasia. She therefore underwent lumpectomy with Hologic localization last 04/23/2023. She tolerated procedure well. She is here to for postop visit. She denies significant complaints at this time. She denies a hematoma on the area. She had a stereotactic biopsy on this same area of the breast about 3 years ago as well which turned out to be benign. She denies palpable breast masses or any nipple or skin changes PFSH Medical History Invasive ductal carcinoma of breast Atypical ductal hyperplasia of breast Breast mass, right Exercise-induced asthma Surgical History History of lumpectomy of right breast (~04/23/23) History of breast biopsy Hx of colonoscopy Social History Patient Tobacco Use Status: Former Tobacco user Tobacco use type: Cigarette Second Hand Smoke Exposure: No Female Reproductive History Menstrual Age of Menarche: 10 Review of Systems Const Denies chills and Denies fever(s) Card Denies chest pain, Denies dyspnea and Denies dyspnea on exertion Resp Denies cough, Denies dyspnea and Denies dyspnea on exertion GI Denies hematochezia and Denies change in bowel habits Denies hematuria Musc Denies back pain and Denies limited range of motion Neuro Denies focal weakness and Denies convulsions Psych Denies depression and Denies mood swings Physical Exam Vital Signs: Last Vital Signs Pulse 63 05/06/23 09:35 BP 133/77 05/06/23 09:35 Const General: comfortable and no acute distress Orientation/consciousness: patient oriented x3 Neck Neck: Yes no lymphadenopathy Chest Other: Lumpectomy site on the right breast is well healed, not infected, no hematoma, no axillary lymphadenopathy, no cervical lymphadenopathy Resp Auscultation: clear to auscultation bilaterally Cardio Rhythm: regular rhythm GI Palpation (GI): Soft to palpation, nontender and no guarding Neuro General: patient oriented x3 Assessment & Plan Assessment & Plan (1) Invasive ductal carcinoma of breast: Code(s): C50.919 - Malignant neoplasm of unspecified site of unspecified female breast Plan: She had undergone lumpectomy by a Hologic localization for an atypical ductal hyperplasia. Her final path report however shows an invasive ductal cancer along with DCIS. The margins are free of invasive ductal carcinoma and DCIS. Clinical stage is currently a T1. However, she will need to have her axillary lymph nodes evaluated. I told her that she will need to have a sentinel biopsy. I explained to her the technique of this procedure. I reviewed the risks including but not limited to bleeding, infections, nerve injury, poor healing, hematoma, as as well as the benefits and alternatives. She wants to proceed She also understands that she will need postop radiation to the entire breast to complete treatment. I have arranged for her to be seen by our oncologist . She understands option of full mastectomy to avoid radiation to the right breast but she prefers to proceed with radiation at this time. Orders: Orders NM sentinel node w imaging Today C50.919 - Malignant neoplasm of unspecified site of unspecified female breast Referrals Hematology & Oncology Referral C50.919 - Malignant neoplasm of unspecified site of unspecified female breast Coding Level of Care Code Est Pt Level 4 (45416) Diagnoses Invasive ductal carcinoma of breast C50.919
[2023-05-06 09:35] VITALS: BP 133/77; PULSE 63
== END 2023-05-06 09:49 | disposition home or self-care (01) ==
PROVIDERS: PCP Internal Medicine; Visit Provider Surgery
DX: C50.911 Malignant neoplasm of unspecified site of right female breast (principal)
CPT/HCPCS: 99214

== ENCOUNTER → 2023-05-06 09:22 | Outpatient (BNVA) | payer OTHER, SELFPAY | PROVIDERS: PCP Internal Medicine; Visit Provider Surgery | DX: C50.911 Malignant neoplasm of unspecified site of right female breast (principal) | CPT/HCPCS: 99212 ==

== ENCOUNTER 2023-05-21 08:00 | Day surgery (SDC) | payer OTHER, SELFPAY ==
[2023-05-18 11:39] VITALS: BMI 32.5
--- NOTE | 2023-05-20 10:14 | HO.ANESPROP2 ---
Documented by User: Loren Blankenship NP 05/20/23 10:16 HPI - Anesthesia Eval Consult details Narrative: 58yo F for Right [place] Node Biopsy, Right Axilla s/p lumpectomy 03/2023 with GA-LMA 4 PMFSH Active Problems Active Problems: All Active Problems (Updated 05/06/23 @ 09:38 by Ender Gaming MD) Invasive ductal carcinoma of breast (Acute) Atypical ductal hyperplasia of breast (Acute) Breast mass, right (Acute) Past Medical History Medical History Invasive ductal carcinoma of breast Atypical ductal hyperplasia of breast Breast mass, right Exercise-induced asthma Family History Family history of problems with anesthesia: No Surgical History Surgical History History of lumpectomy of right breast (~04/23/23) History of breast biopsy Hx of colonoscopy History of Problems with Anesthesia: No Social History Social History Patient Tobacco Use Status: Former Tobacco user Quit Date: 1989 Tobacco use type: Cigarette Smoked in Last 30 Days: No Second Hand Smoke Exposure: No Use of substances other than those prescribed or required for medical reasons: No Are you DNR?: No Advance Directives: No Advance Directives Information Provided: Yes Meds Allergies Allergy/AdvReac Type Severity Reaction Status Date / Time No Known Allergies Allergy Verified 05/21/23 08:08 Home Medications Medication Instructions Recorded Confirmed Last Taken Type naproxen sodium 220 mg tablet 220 mg PO Q12H PRN Pain 06/05/21 05/21/23 05/19/23 History (Fadia) Exam Exam Date and Time: May 20, 2023 1014 Height,Weight and Vital Signs: Height 5 ft 1 in Weight 78.018 kg Pertinent Lab Results Pertinent Lab Results: Laboratory Tests 12/09/22 12/09/22 10:14 10:30 WBC 4.9 Hgb 14.8 Hct 46.1 Plt Count 301 Sodium 141 Potassium 4.3 Chloride 106 Carbon Dioxide 27 BUN 8 L Creatinine 0.74 Assessment and Plan Assessment Anesthesia Assessment: Chart Reviewed Final Anesthetic Review Family History of Problems with Anesthesia: No History of Problems with Anesthesia: No Documented by User: Roopa Diop MD 05/21/23 13:09 [facility] Past Medical History Medical History Invasive ductal carcinoma of breast Atypical ductal hyperplasia of breast Breast mass, right Exercise-induced asthma Functional capacity: independent ambulation Surgical History Surgical History History of lumpectomy of right breast (~04/23/23) History of breast biopsy Hx of colonoscopy Social History Social History Patient Tobacco Use Status: Former Tobacco user Quit Date: 1989 Tobacco use type: Cigarette Smoked in Last 30 Days: No Second Hand Smoke Exposure: No Use of substances other than those prescribed or required for medical reasons: No Are you DNR?: No Advance Directives: No Advance Directives Information Provided: Yes Meds Allergies Allergy/AdvReac Type Severity Reaction Status Date / Time No Known Allergies Allergy Verified 05/21/23 08:08 Home Medications Medication Instructions Recorded Confirmed Last Taken Type naproxen sodium 220 mg tablet 220 mg PO Q12H PRN Pain 06/05/21 05/21/23 05/19/23 History (Aleve) Exam Airway Mallampati Class: IV Neck ROM: Full Loose/Missing/Broken Teeth: Yes (caps and bridge) Heart: rrr Lungs: cta Assessment and Plan Assessment Anesthesia Assessment: Anesthesia Plan Discussed Final Anesthetic Review NPO: Yes ASA Class: III Final Preanesthetic Review: No Changes in Pt Med Stat, Meds/Allgs Chart Reviewed, Consent Obtained/Reviewed and Anes Risks/Benef Reviewed Patient Risk: Intermediate Procedure Risk: Intermediate Anesthetic Plan Anesthetic Plan: GA Disposition: Standard PACU
--- NOTE | ~2023-05-21 | NM_ITS ---
PROCEDURE: NM LYMPH SCINTIGRAPHY CLINICAL INFORMATION: Right breast cancer. COMPARISON: None available. TECHNIQUE: The subcutaneous soft tissue of the skin and nipple interface of the right breast at the 12, 3, 6 and 9 o'clock axis was injected with 0.125 mCi technetium 99 and labeled Lymphoseek for total dose 0.5 mCi. Imaging of the chest in the anterior CAGLE and right lateral projection was obtained. FINDINGS: There is adequate radiotracer uptake at the skin and nipple interface. There is activity seen along the lymphatic channel and multiple right axillary lymph nodes. NM/NM sentinel node w imaging IMPRESSION: Positive sentinel node uptake in the right axilla.
[2023-05-21 08:15] VITALS: BP 151/82; PULSE 78; RESP 16; TEMP 36.3; O2SAT 98; BMI 32.1
[2023-05-21] MEDS: Lidocaine 4 % Cream KIT 1 APPL TOPICAL (08:20)
[2023-05-21] MEDS: Lactated Ringers 1,000 ML 100 ML IVCONT (08:47)
--- NOTE | 2023-05-21 12:11 | MHC.SHP ---
Pre-Procedural Eval Section A Date of Service: 05/21/23 The patient is an INPATIENT: No Changes since office visit: No Cold of Flu in the past 2 weeks, No New Medical Problems, No Changes in Medication and No Patient answered all questions The History & Physical has been completed within 30 days and I have reviewed it.: Yes Section B Chief Complaint: Malignant neoplasm of unspecified site of unspecif Allergies: Allergies Allergy/AdvReac Type Severity Reaction Status Date / Time No Known Allergies Allergy Verified 05/21/23 08:08 Plan I have reviewed the history and physical and performed a pertinent physical examination on my patient. No changes have occurred unless specified. Time Spent With Patient Time: Total time managing care of this patient today ____ minutes.
--- NOTE | 2023-05-21 13:40 | W.PM.OPN ---
Operative Note Operative Note Date of Service: 05/21/23 Narrative: Preop diagnosis: Invasive ductal carcinoma, right breast Postop diagnosis: The same Procedure: [place] node biopsy, right axilla Findings: 3 sentinel nodes were identified and removed. [place] node 1 - 271 [place] node - 378 [place] node 3 - 138 Surgeon: Ender Gaming MD The patient is a 58-year-old female who had recently undergone lumpectomy for an atypical ductal hyperplasia of the right breast. The path report however showed an invasive ductal carcinoma so I had scheduled her for sentinel node biopsy. She understands the technique of the procedure as well as the risks, benefits, and alternatives. She had undergone sentinel node mapping earlier. I had reviewed the images and there were probably about 3 sentinel nodes that could be clearly identified The patient was brought to the operating room. She was placed supine with the right arm abducted. She was position in a way that we had good exposure of the right axilla. Was under general anesthesia via laryngeal mask airway. The right axilla was prepped and draped in the usual sterile fashion. A surgical time-out had been done. The patient received cefazolin 2 g IV preoperatively I then used the gamma probe to identify the maximal counts in the axilla. This and infiltrated the area with lidocaine 1%. I made the incision on this area using blade 15. I carried down the incision electrocautery. I entered the fascia of the axilla used the gamma probe to scan the sellar contents. I was able to identify 1 particularly elevated area and I continued to explore this visually as well as palpation. There was note of a lymph node that we identified. I proceeded to gently dissect this with the Metzenbaum scissors. This was then delivered and sent as specimen. This was labeled as sentinel node 1 and had a count of 271. I continued to scan the axilla and the 2nd lymph node was identified. I carefully dissected this with the Metzenbaum scissors. This was delivered and sent as a specimen. This was labeled as sentinel 2 and had a count of 378. I continued to scan the axilla and a 3rd sentinel node was identified. Again this was gently and sharply dissected with the Metzenbaum scissors and this was delivered and sent as specimen. This was labeled as sentinel node 3 and had a count of 138. I rescanned the entire area and there was no other significantly elevated background counts. I observed for hemostasis. I cauterized small oozing areas I irrigated and we observed for hemostasis. Once hemostasis was confirmed, I reapposed deep subcutaneous tissue with Polysorb 3-0 simple interrupted sutures. Skin closure was achieved with subcuticular running Polysorb 4-0 sutures I infiltrated the area of dissection with Marcaine 0.5% for postop analgesia. Dressings were applied. The procedure was completed . The patient tolerated procedure well. There were no immediate complications. Initial and final counts of sponges and instruments were correct. Estimated blood loss was about 20 cc The patient was extubated without difficulty and transferred to the recovery room with stable vital signs.
--- NOTE | 2023-05-21 13:48 | P.OP_ITS ---
Operative Note Operative Note Date of Service: 05/21/23 Breast [place] Node Biopsy Substrate(s) used for sentinel node biopsy in the non-neoadjuvant setting: Radiotracer Substrate(s) used for sentinel node biopsy in the neoadjuvant setting: Radiotracer All colored nodes or non-colored nodes present at the end of a dye filled lymphatic channel were removed, if dye was used as the substrate for localization: N/A All significantly radioactive nodes were removed, if radionuclide was used as the substrate for localization: Yes All palpably suspicious nodes were removed, if present: Yes If clips were placed in pathology-involved nodes, those nodes were identified and removed: N/A General Surg. - Synoptic Notes Breast [place] Node Biopsy Substrate(s) used for sentinel node biopsy in the non-neoadjuvant setting: Radiotracer Substrate(s) used for sentinel node biopsy in the neoadjuvant setting: Radiotracer All colored nodes or non-colored nodes present at the end of a dye filled lymphatic channel were removed, if dye was used as the substrate for localization: N/A All significantly radioactive nodes were removed, if radionuclide was used as the substrate for localization: Yes All palpably suspicious nodes were removed, if present: Yes If clips were placed in pathology-involved nodes, those nodes were identified and removed: N/A
[2023-05-21 13:55] VITALS: BP 122/79; PULSE 95; RESP 16; TEMP 36.2; O2SAT 96
[2023-05-21 14:00] VITALS: BP 119/79; PULSE 96; RESP 16; O2SAT 94
[2023-05-21 14:05] VITALS: BP 113/57; PULSE 87; RESP 16; O2SAT 96
[2023-05-21] MEDS: Acetaminophen 1,000 MG/100 ML PIGGYBACK 400 MG IV (14:19)
[2023-05-21 14:20] VITALS: BP 130/82; PULSE 71; RESP 16; O2SAT 95
[2023-05-21 14:35] VITALS: BP 133/83; PULSE 72; RESP 16; TEMP 36.3; O2SAT 96
== END 2023-05-21 15:13 | disposition home or self-care (01) ==
PROVIDERS: PCP Internal Medicine; Visit Provider Surgery
PROC: (CPT 38525; principal; 2023-05-21 12:20)
DX: C50.911 Malignant neoplasm of unspecified site of right female breast (principal); R59.0 Localized enlarged lymph nodes; Z98.890 Other specified postprocedural states; J45.990 Exercise induced bronchospasm; Z79.1 Long term (current) use of non-steroidal anti-inflammatories (NSAID); Z79.899 Other long term (current) drug therapy; Z87.891 Personal history of nicotine dependence
CPT/HCPCS: 38525; 38900; 78195; 88307; 88342; A9520; J0131; J0690; J1100; J2250; J2405; J3010

== ENCOUNTER → 2023-05-21 08:00 | Outpatient (BNV) | payer OTHER, SELFPAY | PROVIDERS: PCP Internal Medicine; Visit Provider Surgery | DX: C50.911 Malignant neoplasm of unspecified site of right female breast (principal) | CPT/HCPCS: 38525; 38900 ==

== ENCOUNTER → 2023-06-04 10:48 | Outpatient (BNV) | payer OTHER, SELFPAY | PROVIDERS: PCP Internal Medicine; Referring Provider Surgery; Visit Provider Internal Medicine | DX: D05.11 Intraductal carcinoma in situ of right breast (principal); M85.80 Other specified disorders of bone density and structure, unspecified site; E55.9 Vitamin D deficiency, unspecified | CPT/HCPCS: 99204; 99213; 99214 ==

== ENCOUNTER 2023-06-07 12:48 | Outpatient (AMB) | payer OTHER, SELFPAY ==
[2023-06-07 12:51] VITALS: BP 143/71; PULSE 68; BMI 33.6
--- NOTE | 2023-06-07 12:51 | A.OFFVIS_ITS ---
Intake Vital Signs 06/07/23 12:51 Height 5 ft 1 in Weight 177 lb 11.081 oz BMI 33.6 BP 143/71 H Blood Pressure Location Lt brachial Position Sitting Pulse 68 Intake Visit Reasons: S/p right axillary SN BX Intake Note: This patient presents for a post-op assessment status post right axillary sentinel node biopsy. Patient c/o; reports bilateral breast shooting pain, reports no complaints with the biopsy site. Associate Counsel Required: No Accompanied by: Self / Same As Patient Allergies No Known Allergies Allergy (Verified 06/07/23 13:01) HPI S/p right axillary SN BX HPI Details She had undergone a biopsy of the right axilla last 05/21/2023.for a recent diagnosis of a breast cancer . She tolerated the procedure well. She says she is currently doing well and denies complaints. [facility] Medical History Invasive ductal carcinoma of breast Atypical ductal hyperplasia of breast Breast mass, right Exercise-induced asthma Surgical History History of lumpectomy of right breast (~04/23/23) History of breast biopsy Hx of colonoscopy Social History Household Members: Spouse and Children Housing: House Patient Tobacco Use Status: Former Tobacco user Quit Date: 1989 Tobacco use type: Cigarette Second Hand Smoke Exposure: No service: No Current occupational status: employed Female Reproductive History Menstrual Age of Menarche: 10 Review of Systems Const Denies chills and Denies fever(s) Card Denies chest pain, Denies dyspnea and Denies dyspnea on exertion Resp Denies cough, Denies dyspnea and Denies dyspnea on exertion GI Denies hematochezia and Denies change in bowel habits Denies hematuria Musc Denies back pain and Denies limited range of motion Neuro Denies focal weakness and Denies convulsions Psych Denies depression and Denies mood swings Physical Exam Vital Signs: Last Vital Signs Pulse 68 06/07/23 12:51 BP 143/71 H 06/07/23 12:51 BMI result Body Mass Index 33.6 Const General: comfortable and no acute distress Chest Other: right axillary well-healed, no hematoma, no palpable masses Assessment & Plan Assessment & Plan (1) Invasive ductal carcinoma of breast: Code(s): C50.919 - Malignant neoplasm of unspecified site of unspecified female breast Plan: status post sentinel biopsy, right axilla. There was a total of 4 lymph nodes that were removed labeled as sentinel nodes. All 4 nodes were the for metastatic disease. Her incisions are well healed. There is no hematoma. Will see her again in the office in about 6 months. She has been seeing Dr. Stearns. She is being set up for radiation treatment. She is also to be started on hormonal therapy. Coding Level of Care Code Global (45164) Diagnoses Invasive ductal carcinoma of breast C50.919
== END 2023-06-07 13:24 | disposition home or self-care (01) ==
PROVIDERS: PCP Internal Medicine; Visit Provider Surgery
DX: C50.919 Malignant neoplasm of unspecified site of unspecified female breast (principal)
CPT/HCPCS: 99024

== ENCOUNTER → 2023-06-07 12:48 | Outpatient (BNVA) | payer OTHER, SELFPAY | PROVIDERS: PCP Internal Medicine; Visit Provider Surgery ==

== ENCOUNTER 2023-07-28 13:23 | Outpatient (REF) | payer OTHER, SELFPAY | END 2023-07-28 13:24 | disposition home or self-care (01) | LOC: HO.MAMMO 13:23 | PROVIDERS: PCP Internal Medicine; Visit Provider Internal Medicine | DX: C50.919 Malignant neoplasm of unspecified site of unspecified female breast (principal); M85.80 Other specified disorders of bone density and structure, unspecified site | CPT/HCPCS: 77080 ==

== ENCOUNTER 2023-12-30 13:31 | Outpatient (AMB) | payer OTHER, SELFPAY ==
[2023-12-30 13:33] VITALS: BP 139/71; PULSE 65; BMI 33.1
--- NOTE | 2023-12-30 13:33 | A.OFFVIS_ITS ---
Vital Signs 12/30/23 13:33 Height 5 ft 1 in Weight 175 lb BMI 33.1 BP 139/71 Blood Pressure Location Rt brachial Position Sitting Pulse 65 Intake Visit Reasons: 6 mth breast exam Intake Note: This patient presents for a six month follow-up breast examination assessment. Patient c/o; reports no breast complaints at this time. 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 This turned out to be an invasive ductal cancer. She underwent sentinel biopsy last April 2023 which were negative for metastatic disease. She was therefore stage 1, T1 N0. She had been started on letrozole but she was unable to tolerate this. She was switched to anastrozole. She is being followed by Dr. Stearns for this. She has had radiation for the breast. She currently denies complaints. She says she feels well overall. [facility] Medical History (Updated 12/30/23 @ 13:38 by Ender Gaming MD) History of breast cancer Invasive ductal carcinoma of breast Atypical ductal hyperplasia of breast Breast mass, right Exercise-induced asthma Surgical History History of lumpectomy of right breast (~04/23/23) History of breast biopsy Hx of colonoscopy Social History Household Members: Spouse and Children Housing: House Patient Tobacco Use Status: Former Tobacco user Tobacco use type: Cigarette Second Hand Smoke Exposure: No service: No Current occupational status: employed Female Reproductive History Menstrual Age of Menarche: 10 Review of Systems Const Denies chills and Denies fever(s) Card Denies chest pain, Denies dyspnea and Denies dyspnea on exertion Resp Denies cough, Denies dyspnea and Denies dyspnea on exertion GI Denies hematochezia and Denies change in bowel habits Denies hematuria Musc Denies back pain and Denies limited range of motion Neuro Denies focal weakness and Denies convulsions Psych Denies depression and Denies mood swings Physical Exam Const General: comfortable and no acute distress Orientation/consciousness: patient oriented x3 Neck Neck: Yes no lymphadenopathy Chest Other: No palpable breast masses, no nipple or skin changes, no axillary lymphadenopathy Resp Auscultation: clear to auscultation bilaterally Cardio Rhythm: regular rhythm GI Palpation (GI): Soft to palpation, nontender and no guarding Neuro General: patient oriented x3 Assessment & Plan Assessment & Plan (1) History of breast cancer: Code(s): Z85.3 - Personal history of malignant neoplasm of breast Category: Medical Plan: She had undergone lumpectomy and eventually sentinel biopsy for an invasive ductal cancer, T1 N0 , ERPR positive, HER2 negative last April,. Current exam does not reveal any palpable breast mass. She was advised to continue with regular screening mammograms. Her next 1 should be sometime this February,. She is to continue to follow with Dr. Stearns of Oncology. She is currently on anastrozole hormonal treatment. I will see her again in the office in 6 months. Coding Level of Care Code Est Pt Level 3 (40653) Diagnoses History of breast cancer Z85.3
== END 2023-12-30 13:49 | disposition home or self-care (01) ==
PROVIDERS: PCP Internal Medicine; Visit Provider Surgery
DX: C50.911 Malignant neoplasm of unspecified site of right female breast (principal)
CPT/HCPCS: 99213

== ENCOUNTER → 2023-12-30 13:31 | Outpatient (BNVA) | payer OTHER, SELFPAY | PROVIDERS: PCP Internal Medicine; Visit Provider Surgery | DX: Z85.3 Personal history of malignant neoplasm of breast (principal) | CPT/HCPCS: 99212 ==

== ENCOUNTER 2024-03-07 11:55 | Outpatient (REF) | payer OTHER, SELFPAY ==
--- NOTE | ~2024-03-07 | MM_ITS ---
EXAMINATION: MM DIAGNOSTIC DIGITAL BREAST TOMOSYNTHESIS, BILATERAL US BREAST LIMITED, LEFT MAMMOGRAPHY: CLINICAL INFORMATION: Year 1 postop follow-up for right breast lumpectomy/conservation therapy for IDC upper outer quadrant. Due for bilateral screening. COMPARISON: -Screening mammography 03/02/2023, 03/02/2022, and dating back to 2019. -Right stereotactic biopsy 04/07/2023, right needle localization 04/16/2023. -Ultrasound right 03/24/2023. TECHNIQUE: Digital breast tomosynthesis is performed in both the craniocaudal and mediolateral oblique views along with computer-aided detection (CAD). Synthesized 2D images are generated from the tomosynthesis. In addition, spot magnification right CC and ML views were obtained of the lumpectomy site, as well as 3-D spot compression left CC views x1 and ML views x2. This was followed by targeted left breast ultrasound upper outer quadrant. FINDINGS: There are scattered areas of fibroglandular density (ACR BI-RADS breast composition Category b). -In the right breast, there are expected post therapy changes including trabecular thickening, skin thickening, and scarring in the upper outer quadrant at the lumpectomy site. There are no suspicious findings. Redemonstration of old benign top hat biopsy clip in the upper outer right breast, abutting the lumpectomy site. -In the left breast, there is a subtle area of possible architectural distortion which does not definitively persist on spot compression views and otherwise appears stable and unchanged in morphology when compared with exams dating back to 2019. The be cautious, we will evaluate the upper outer quadrant of the left breast with ultrasound. No additional abnormalities in the left breast. ULTRASOUND: CLINICAL INFORMATION: As above. COMPARISON: None relevant. TECHNIQUE: Targeted sonographic evaluation was performed using a high frequency linear transducer. Left breast was scanned from the 12:00 to 3:00 axis to include the area of mammographic concern. Selected archived documentation. FINDINGS: LEFT BREAST: There is mixture of fatty and fibroglandular breast tissue present. There is no mass, abnormal shadowing, cystic abnormality, or architectural distortion identified. Only normal fatty and fibroglandular breast tissue is present. MM/MM tomosynthesis diagnostic BI IMPRESSION: -There are no findings suspicious for malignancy in either breast. -Expected post therapeutic changes right breast without complication. -Stable appearance of the upper outer quadrant of the left breast when compared with numerous prior exams, benign. -Recommend the patient continue yearly postoperative protocol in one year. OVERALL ASSESSMENT: Mammography: BI-RADS 2 - Benign Findings Ultrasound: BI-RADS 2 - Benign Findings RECOMMENDATION: 12 month diagnostic follow up This patient's information was entered into a reminder system with a target due date for their next mammogram.
== END 2024-03-07 11:56 | disposition home or self-care (01) ==
LOC: HO.MAMMO 11:55
PROVIDERS: PCP Internal Medicine; Visit Provider Internal Medicine
DX: N64.89 Other specified disorders of breast (principal)
CPT/HCPCS: 76642; 77062; 77066

== ENCOUNTER → 2024-03-07 12:00 | Outpatient (BNV) | payer OTHER, SELFPAY | PROVIDERS: PCP Internal Medicine; Visit Provider Radiology Diagnostic Radiology | DX: C50.911 Malignant neoplasm of unspecified site of right female breast (principal) | CPT/HCPCS: 76642; 77062; 77066 ==

== ENCOUNTER 2024-06-29 15:11 | Outpatient (AMB) | payer OTHER, SELFPAY ==
[2024-06-29 15:13] VITALS: BMI 33.0
--- NOTE | 2024-06-29 15:13 | A.OFFVIS_ITS ---
Vital Signs 06/29/24 15:13 Height 5 ft 1 in Weight 174 lb 13.225 oz BMI 33.0 Intake Visit Reasons: 6 month breast exam Intake Note: This patient presents for six month breast exam. Pt c/o; reports occasional tenderness surgical site. Digital Media Analyst Required: No Accompanied by: Self / Same As Patient Allergies No Known Allergies Allergy (Verified 06/29/24 15:17) HPI HPI 6 month breast exam: Details: She had undergone lumpectomy of the right breast for an initial diagnosis of atypical ductal hyperplasia last March,. This turned out to be an invasive ductal cancer. She underwent sentinel biopsy last April 2023 which were negative for metastatic disease. She was therefore stage 1, T1 N0. She had been started on letrozole but she was unable to tolerate this. She was switched to anastrozole. She is being followed by Dr. Stearns for this. She has had radiation for the breast. She currently denies complaints. She says she feels well overall. Review of her records show that she had a mammogram last February, and this did not reveal any suspicious findings. She also wants me to removed 2 lesions from her back that has been bothering her. She says she has had this for many years. She is concerned this may be some form of skin cancer. [facility] Medical History (Updated 06/29/24 @ 15:28 by Ender Gaming MD) Skin lesion of back History of breast cancer Invasive ductal carcinoma of breast Atypical ductal hyperplasia of breast Breast mass, right Exercise-induced asthma Surgical History History of lumpectomy of right breast (~04/23/23) History of breast biopsy Hx of colonoscopy Social History Household Members: Spouse and Children Housing: House Patient Tobacco Use Status: Former Tobacco user Tobacco use type: Cigarette Second Hand Smoke Exposure: No service: No Current occupational status: employed Female Reproductive History Menstrual Age of Menarche: 10 Review of Systems Const Denies chills and Denies fever(s) Card Denies chest pain, Denies dyspnea and Denies dyspnea on exertion Resp Denies cough, Denies dyspnea and Denies dyspnea on exertion GI Denies hematochezia and Denies change in bowel habits Denies hematuria Musc Denies back pain and Denies limited range of motion Neuro Denies focal weakness and Denies convulsions Psych Denies depression and Denies mood swings Physical Exam Vital Signs: BMI result Body Mass Index 33.0 Const General: comfortable and no acute distress Orientation/consciousness: patient oriented x3 Neck Neck: Yes no lymphadenopathy Chest Other: No palpable breast masses, no nipple or skin changes, no axillary lymphadenopathy Resp Auscultation: clear to auscultation bilaterally Cardio Rhythm: regular rhythm GI Palpation (GI): Soft to palpation, nontender and no guarding Back/Spine/Pelvis Other: Elevated, crusting skin lesion on the left side of the upper back, about 5 mm in diameter Pigmented, elevated, dry skin lesion on the right side of the mid back, about 1 cm in diameter Neuro General: patient oriented x3 Assessment & Plan Assessment & Plan (1) History of breast cancer: Code(s): Z85.3 - Personal history of malignant neoplasm of breast Category: Medical Plan: Her surveillance mammogram from February, did not reveal any suspicious findings. Her physical exam at this time is unremarkable I emphasized with her the importance of continuing with regular screening mammograms every year. She otherwise has completed treatment for her invasive ductal carcinoma with lumpectomy and radiation and is currently on anti hormonal treatment with letrozole. I will see her in the office in about 6 months. (2) Skin lesion of back: Code(s): L98.9 - Disorder of the skin and subcutaneous tissue, unspecified Category: Medical Plan: She has 2 skin lesions on the back as described above. She wants to proceed with the excision. I explained the technique of excision under local anesthesia. I reviewed the risks, benefits, alternatives and she wants to proceed. This will be done in the office on her next visit. Coding Level of Care Code Est Pt Level 3 (57240) Diagnoses History of breast cancer Z85.3 Skin lesion of back L98.9
--- OUTSIDE RECORDS SUMMARY | 2024-07-05 04:16 | XMS_ITS | Patient Health Record ---
Author Organization [facility] Address [address] [place] [id number] Care Team Providers Care Platform Power Technician Name Role Phone Petty Leonard Primary Care Provider UnavailSeferino Wolfe Unavailable [phone] ALLERGIES No Known Allergies REASON FOR REFERRAL No Information MEDICATIONS Medication SIG (Take, Route, Frequency, Duration) Notes Start Date End Date Status Aleve Active IMMUNIZATIONS Vaccine Route Administration Date Status Comme nts Influenza Unknown 05/16/2021 Refused SOCIAL HISTORY Sex Assigned At : Social History Observation Description Sex Assigned At Unknown PROBLEMS Problem Type ICD Code Onset Dates Problem Status W/U Status Risk SNOMED Code Notes Problem Encounter for screening for malignant neoplasm of colon (Z12.11) Active confirmed 193409218 Problem History of adenomatous polyp of colon (Z86.010) Active confirmed 657107265 Problem Personal history of colonic polyps (Z86.010) Active confirmed History of poly p of colon (situation) (143524135) Problem Diverticulosis of large intestine without perforation or abscess without bleeding (K57.30) Active confirmed Diverticul ar disease of colon (041383658) Problem Preprocedural examination (Z01.818) Active confirmed [id number] PLAN OF TREATMENT Future Test Test Name Order Date COLONOSCOPY 01/15/2015 COLONOSCOPY 05/16/2021 Insurance Providers Payer Name Payer Address Payer Phone Subscriber Number Group Number Insured Name Patient Relationship to Insured Coverage Start Date Coverage End Date [facility] [address] [place] [address] [id number] COREY SHAHID Self - patient is the insured MEDICAL (GENERAL) HISTORY Medical History History ICD Code Denies VA,DM,CVA,renal disease Exercise-induced asthma Screening colonoscopy 03/2015 with a sessile serrated polyp and tubular adenoma removed Surgical History Surgery Date(Month/Year)
== END 2024-06-29 15:33 | disposition home or self-care (01) ==
PROVIDERS: PCP Internal Medicine; Visit Provider Surgery
DX: Z85.3 Personal history of malignant neoplasm of breast (principal); L98.9 Disorder of the skin and subcutaneous tissue, unspecified
CPT/HCPCS: 99213

== ENCOUNTER → 2024-06-29 15:11 | Outpatient (BNVA) | payer OTHER, SELFPAY | PROVIDERS: PCP Internal Medicine; Visit Provider Surgery | DX: C50.911 Malignant neoplasm of unspecified site of right female breast (principal); L98.9 Disorder of the skin and subcutaneous tissue, unspecified | CPT/HCPCS: 99212 ==

== ENCOUNTER 2024-07-12 08:58 | Outpatient (AMB) | payer OTHER, SELFPAY ==
--- OUTSIDE RECORDS SUMMARY | 2024-07-12 09:08 | XMS_ITS | Patient Health Record ---
Author Organization [facility] Address [address] [place] [id number] Care Team Providers Care Sandstone Inspector Repairer Name Role Phone Petty Leonard Primary Care Provider UnavailSeferino Wolfe Unavailable [phone] ALLERGIES No Known Allergies REASON FOR REFERRAL [...] malignant neoplasm of colon (Z12.11) Active confirmed 605723483 Problem History of adenomatous polyp of colon (Z86.010) Active confirmed 645286195 Problem Personal history of colonic polyps (Z86.010) Active confirmed History of poly p of colon (situation) (295684735) Problem Diverticulosis of large intestine without perforation or abscess without bleeding (K57.30) Active confirmed Diverticul ar disease of colon (449444196) Problem Preprocedural examination (Z01.818) Active confirmed [id number] PLAN OF TREATMENT Future Test Test Name Order Date COLONOSCOPY 01/15/2015 COLONOSCOPY 05/16/2021 Insurance Providers Payer Name Payer Address Payer Phone Subscriber Number Group Number Insured Name Patient Relationship to Insured Coverage Start Date Coverage End Date [facility] [address] [place] [address] [id number] COREY SHAHID Self - patient is the insured MEDICAL (GENERAL) HISTORY Medical History History ICD Code Denies OR,DM,CVA,renal disease Exercise-induced asthma Screening colonoscopy 03/2015 with a sessile serrated polyp and tubular adenoma removed Surgical History Surgery Date(Month/Year)
--- NOTE | 2024-07-12 09:13 | A.OFFVIS_ITS ---
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 She now points to 2 skin lesions on the back, 1 on the left shoulder on the left upper back and 1 on the posterior neck just above the shoulder. She also wanted a skin lesion on the inferior aspect of the left breast excised. This was an elevated, soft, well-defined skin lesion measuring about 4 cm in widest dimension. [facility] Medical History (Updated 06/29/24 @ 15:28 by Ender Gaming MD) Skin lesion of back History of breast cancer Invasive ductal carcinoma of breast Atypical ductal hyperplasia of breast Breast mass, right Exercise-induced asthma Surgical History History of lumpectomy of right breast (~04/23/23) History of breast biopsy Hx of colonoscopy Social History Household Members: Spouse and Children Housing: House Patient Tobacco Use Status: Former Tobacco user Tobacco use type: Cigarette Second Hand Smoke Exposure: No service: No Current occupational status: employed Female Reproductive History Menstrual Age of Menarche: 10 Office Procedures Excision Details: She was in supine position. The area of the skin lesion of the breast on the lower part was prepped and draped. Lidocaine 1% was used for local anesthesia. I made an incision around this using blade 15. This was carried down through the full-thickness of skin and part of subcutaneous fat. The area excised with a about 4 cm long and about 2.5 cm wide. This was closed with full-thickness nylon 3-0 simple interrupted sutures. She was placed in supine position. The area of the skin lesion on the left upper back near the shoulder was prepped and draped. Lidocaine 1% was used for local anesthesia. I made an elliptical incision around this skin lesion using blade 15. This was carried down through the full-thickness of the skin and subcutaneous fat to excise this entire lesion. This measured about 1 cm in diameter. We made sure that there was note of mostly grossly normal-looking skin margins She was in prone position. I then prepped and draped the skin lesion on the left posterior neck towards the shoulder. Lidocaine 1% was used for local anesthesia. I made an elliptical incision around the skin lesion using a blade 15. This was carried down through the full-thickness of the skin and subcutaneous fat to excise the entire lesion. The lesion measured about 1.2 cm in diameter as well Again we made sure that there was grossly normal-looking skin margins . Both skin incisions were closed with full-thickness nylon 3-0 simple interrupted sutures. Dressings were applied. The procedure was completed. She tolerated the procedure well. There were no immediate complications. 11507-apyek/arms/legs 2.1-3cm 11462-wpstt/arms/legs 3.1-4cm Procedure code (CPT) selection complete Assessment & Plan Assessment & Plan (1) Skin lesion of back: Code(s): L98.9 - Disorder of the skin and subcutaneous tissue, unspecified Category: Medical Plan: She had 2 skin lesions from the back removed and wants skin lesion on the left breast inferiorly. She was given wound care instructions. I will see her in the office for removal sutures. Coding Level of Care Code Procedure Only Diagnoses Skin lesion of back L98.9 CPT Codes Trunk/Arms/Legs - CPT: 81014-ycfwl/arms/legs 2.1-3cm ([id number]) Trunk/Arms/Legs - CPT: 88770-pxmsy/arms/legs 3.1-4cm ([id number])
[2024-07-12 09:14] VITALS: PULSE 66; BMI 32.9
== END 2024-07-12 09:53 | disposition home or self-care (01) ==
PROVIDERS: PCP Internal Medicine; Visit Provider Surgery
DX: L82.1 Other seborrheic keratosis (principal); L57.0 Actinic keratosis
CPT/HCPCS: 11401; 11403; 11422

== ENCOUNTER 2024-07-12 08:58 | Outpatient (REF) | payer OTHER, SELFPAY | END 2024-07-12 08:59 | disposition home or self-care (01) | LOC: HO.LAB 08:58 | PROVIDERS: PCP Internal Medicine; Visit Provider Surgery | DX: L98.9 Disorder of the skin and subcutaneous tissue, unspecified (principal); Z85.3 Personal history of malignant neoplasm of breast; L98.8 Other specified disorders of the skin and subcutaneous tissue | CPT/HCPCS: 11401; 11403; 11422; 88305 ==

== ENCOUNTER 2024-07-27 11:23 | Outpatient (AMB) | payer OTHER, SELFPAY ==
--- NOTE | 2024-07-27 11:23 | A.OFFVIS_ITS ---
Vital Signs 07/27/24 11:28 Height 5 ft 1 in Weight 174 lb 2.643 oz BMI 32.9 Intake Visit Reasons: s/p excision skin lesions back Intake Note: This patient presents for follow-up assessment status post office procedure, excision skin lesions of back x2. Pt c/o; ? infection, reports redness. 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 She tolerated procedure well. She currently denies significant complaints except for some redness on the excision site under the left breast. [facility] Medical History Skin lesion of back History of breast cancer Invasive ductal carcinoma of breast Atypical ductal hyperplasia of breast Breast mass, right Exercise-induced asthma Surgical History History of lumpectomy of right breast (~04/23/23) History of breast biopsy Hx of colonoscopy Social History Household Members: Spouse and Children Housing: House Patient Tobacco Use Status: Former Tobacco user Tobacco use type: Cigarette Second Hand Smoke Exposure: No service: No Current occupational status: employed Female Reproductive History Menstrual Age of Menarche: 10 Review of Systems Const Denies chills and Denies fever(s) Physical Exam Vital Signs: BMI result Body Mass Index 32.9 Const General: comfortable and no acute distress Resp Effort & Inspection: normal respiratory effort Skin Other: Excision sites on the left shoulder x2, both well healed, sutures intact Excision site on the underside of the left breast, sutures intact, some surrounding redness of the skin Assessment & Plan Assessment & Plan (1) Skin lesion of back: Code(s): L98.9 - Disorder of the skin and subcutaneous tissue, unspecified Category: Medical Plan: She had 2 skin lesions excised on the left shoulder towards the back. I removed both the sutures from excision sites. Both sites are well healed. The path report for 1 of the lesion shows seborrheic keratosis in the other 1 shows actinic keratosis. (2) Breast mass, right: Code(s): N63.10 - Unspecified lump in the right breast, unspecified quadrant Category: Medical Plan: I removed the sutures. There was some redness on the excision sites so I instructed her to do daily dressing changes with gauze. The path report shows actinic keratosis. She can follow up on a p.r.n. basis. Coding Level of Care Code Global (37246) Diagnoses Skin lesion of back L98.9 Breast mass, right N63.10
[2024-07-27 11:28] VITALS: BMI 32.9
--- OUTSIDE RECORDS SUMMARY | 2024-07-27 12:31 | XMS_ITS | Patient Health Record ---
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 Name Role Phone Petty Leonard Primary Care Provider UnavailSeferino Wolfe Unavailable [phone] ALLERGIES No Known Allergies REASON FOR REFERRAL [...] malignant neoplasm of colon (Z12.11) Active confirmed 665021946 Problem History of adenomatous polyp of colon (Z86.010) Active confirmed 470958005 Problem Personal history of colonic polyps (Z86.010) Active confirmed History of poly p of colon (situation) (292213839) Problem Diverticulosis of large intestine without perforation or abscess without bleeding (K57.30) Active confirmed Diverticul ar disease of colon (909957592) Problem Preprocedural examination (Z01.818) Active confirmed [id number] PLAN OF TREATMENT Future Test Test Name Order Date COLONOSCOPY 01/15/2015 COLONOSCOPY 05/16/2021 Insurance Providers Payer Name Payer Address Payer Phone Subscriber Number Group Number Insured Name Patient Relationship to Insured Coverage Start Date Coverage End Date [facility] [address] [place] [address] [id number] COREY SHAHID Self - patient is the insured MEDICAL (GENERAL) HISTORY Medical History History ICD Code Denies [place],DM,CVA,renal disease Exercise-induced asthma Screening colonoscopy 03/2015 with a sessile serrated polyp and tubular adenoma removed Surgical History Surgery Date(Month/Year)
== END 2024-07-27 11:43 | disposition home or self-care (01) ==
PROVIDERS: PCP Internal Medicine; Visit Provider Surgery
DX: L98.9 Disorder of the skin and subcutaneous tissue, unspecified (principal); N63.10 Unspecified lump in the right breast, unspecified quadrant
CPT/HCPCS: 99024

== ENCOUNTER → 2024-07-27 11:23 | Outpatient (BNVA) | payer OTHER, SELFPAY | PROVIDERS: PCP Internal Medicine; Visit Provider Surgery | DX: Z48.817 Encounter for surgical aftercare following surgery on the skin and subcutaneous tissue (principal); L98.9 Disorder of the skin and subcutaneous tissue, unspecified | CPT/HCPCS: 99212 ==

== ENCOUNTER 2025-03-20 13:13 | Outpatient (REF) | payer OTHER, SELFPAY ==
--- NOTE | ~2025-03-20 | MM_ITS ---
EXAMINATION: MM DIAGNOSTIC DIGITAL BREAST TOMOSYNTHESIS, BILATERAL CLINICAL INFORMATION: Status post right lumpectomy for invasive ductal carcinoma in April 2023. COMPARISON: Comparison made to multiple prior, most recent March 07, 2024, and most remote . TECHNIQUE: Digital breast tomosynthesis is performed in both the craniocaudal and mediolateral oblique views along with computer-aided detection (CAD). Synthesized 2D images are generated from the tomosynthesis. FINDINGS: BREAST COMPOSITION: There are scattered areas of fibroglandular density (ACR BI-RADS breast composition Category b). RIGHT BREAST: Post lumpectomy changes. Tissue marker from previous needle core biopsy. No significant masses, suspicious calcifications or other abnormalities are seen. LEFT BREAST: No significant masses, suspicious calcifications or other abnormalities are seen. MM/MM tomosynthesis diagnostic BI IMPRESSION: BILATERAL BREASTS: Benign, no mammographic evidence of malignancy. Normal interval follow-up is recommended in 12 months. ASSESSMENT: BI-RADS 2 - Benign Findings RECOMMENDATION: 12 month diagnostic follow up Results were provided to the patient at time of visit by the technologist. This patient's information was entered into a reminder system with a target due date for their next mammogram. Electronically signed by: Young Flores MD 03/20/2025 03:07 PM EDT
--- OUTSIDE RECORDS SUMMARY | 2025-03-20 14:05 | XMS_ITS | Patient Health Record ---
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 Role Phone Petty Leonard Primary Care Provider UnavailSeferino Wolfe Unavailable [phone] Allergies No Known Allergies Reason For Referral No Information Medications Medication SIG (Take, Route, Frequency, Duration) Notes Start Date End Date Status Aleve Active Immunizations Vaccine Route Administration Date Status Comme nts Influenza Unknown 05/16/2021 Refused Problems Problem Type SNOMED Code ICD Code Onset Dates Problem Status W/U Status Risk Notes Problem [id number] Encounter for screening for malignant neoplasm of colon (Z12.11) Active confirmed Problem 830157718 History of adenomatous polyp of colon (Z86.010) Active confirmed Problem Personal history of colonic polyps (Z86.010) Active confirmed Problem Diverticular disease of colon (121632066) Diverticulosis of large intestine without perforation or abscess without bleeding (K57.30) Active confirmed Problem [id number] Preprocedural examination (Z01.818) Active confirmed Plan Of Treatment Future Test Test Name Order Date COLONOSCOPY 01/15/2015 COLONOSCOPY 05/16/2021 Insurance Providers Payer Name Payer Address Payer Phone Subscriber Number Group Number Insured Name Patient Relationship to Insured Coverage Start Date Coverage End Date [facility] [address] [place] [address] [id number] COREY SHAHID Self - patient is the insured Medical (General) History Medical History History ICD Code Denies [place],DM,CVA,renal disease Exercise-induced asthma Screening colonoscopy 03/2015 with a sessile serrated polyp and tubular adenoma removed Surgical History Surgery Date(Month/Year)
== END 2025-03-20 13:14 | disposition home or self-care (01) ==
LOC: HO.MAMMO 13:13
PROVIDERS: PCP Internal Medicine; Visit Provider Internal Medicine
DX: Z12.31 Encounter for screening mammogram for malignant neoplasm of breast (principal); Z85.3 Personal history of malignant neoplasm of breast
CPT/HCPCS: 77062; 77066

== ENCOUNTER → 2025-03-20 13:30 | Outpatient (BNV) | payer OTHER, SELFPAY | PROVIDERS: PCP Internal Medicine; Visit Provider Radiology Body Imaging | DX: C50.911 Malignant neoplasm of unspecified site of right female breast (principal) | CPT/HCPCS: 77062; 77066 ==

== ENCOUNTER 2025-04-25 11:08 | Outpatient (REF) | payer OTHER, SELFPAY ==
[2025-04-25 13:45] LABS: Alanine Aminotransferase 21 U/L (0-31); Albumin Level 4.4 g/dL (3.5-5.0); Alkaline Phosphatase 112 U/L (39-117); Anion Gap 12 (12-20); Aspartate Amino Transferase 22 U/L (5-31); Blood Urea Nitrogen 16 mg/dL (9-16); Calcium 9.5 mg/dL (8.4-10.2); Carbon Dioxide 28 mmol/L (22-29); Chloride 105 mmol/L (96-108); Cholesterol 248 mg/dL (<200); Estimated Glomerular Filt Rate > 60; HDL Cholesterol 67 mg/dL (>40); Potassium 3.8 mmol/L (3.3-5.1); Sodium 141 mmol/L (135-145); Total Protein 7.5 g/dL (6.5-8.0); Triglycerides 106 mg/dL (<150)
== END 2025-04-25 11:09 | disposition home or self-care (01) ==
LOC: HO.HMGCLDS 11:08
PROVIDERS: PCP Internal Medicine; Visit Provider Internal Medicine
DX: Z00.00 Encounter for general adult medical examination without abnormal findings (principal); I10 Essential (primary) hypertension; Z85.3 Personal history of malignant neoplasm of breast; Z86.0100 Personal history of colon polyps, unspecified
CPT/HCPCS: 36415; 80053; 80061